=== PATIENT | female | born 1950 | race Caucasian/White ===

== ENCOUNTER 2020-07-18 08:27 | Outpatient (CLI) | payer MEDICARE, OTHER, SELFPAY ==
--- NOTE | 2020-07-18 08:37 | MM_ITS ---
WS: [id number] BILATERAL SCREENING DIGITAL MAMMOGRAM WITH CAD HISTORY: SCREENING COMPARISON: 06/11/2019, 01/30/2018 and 12/06/2016 Bilateral CC and MLO views submitted. Computer aided detection analyzed. Breast composition: There are scattered areas of fibroglandular density. No suspicious masses, microc alcifications or architectural distortion. Stable fibroglandular asymmetries bilaterally and calcific ations. MM/[place] [id number] IMPRESSION: BI-RADS: 2-Benign FOLLOW UP: 1 Year Follow-up
== END 2020-07-18 08:28 | disposition home or self-care (01) ==
LOC: RADSHAW 08:32
PROVIDERS: PCP Nurse Practitioner Family; Visit Provider Obstetrics & Gynecology
DX: Z12.31 Encounter for screening mammogram for malignant neoplasm of breast (principal)
CPT/HCPCS: 77067

== ENCOUNTER 2021-08-05 10:49 | Outpatient (CLI) | payer MEDICARE, OTHER, SELFPAY ==
--- NOTE | 2021-08-05 10:57 | MM_ITS ---
WS: [email or web address] BILATERAL SCREENING DIGITAL MAMMOGRAM WITH CAD HISTORY: SCREENING COMPARISON: 07/18/2020, 01/30/2018 and 06/09/2019 Bilateral CC and MLO views submitted. Computer aided detection analyzed. Breast composition: The breasts are heterogeneously dense, which may obscure small masses. No suspici ous masses, microcalcifications or architectural distortion. Scattered asymmetries and nodules and ca lcifications are stable. MM/[place] [id number] IMPRESSION: BI-RADS: 2-Benign FOLLOW UP: 1 Year Follow-up
== END 2021-08-05 10:50 | disposition home or self-care (01) ==
LOC: RADSHAW 10:55
PROVIDERS: PCP Nurse Practitioner Family; Visit Provider Obstetrics & Gynecology
DX: Z12.31 Encounter for screening mammogram for malignant neoplasm of breast (principal)
CPT/HCPCS: 77067

== ENCOUNTER 2022-08-18 10:02 | Outpatient (CLI) | payer MEDICARE, OTHER, SELFPAY ==
--- NOTE | 2022-08-18 10:09 | MM_ITS ---
WS: [email or web address] BILATERAL SCREENING DIGITAL TOMOSYNTHESIS MAMMOGRAM WITH CAD HISTORY: SCREENING COMPARISON: 12/02/2011, 01/30/2018, 08/05/2021 Bilateral CC and MLO views with tomosynthesis and synthetic mammography submitted. Computer aided det ection analyzed. Breast composition: The breasts are heterogeneously dense, which may obscure small masses. No suspici ous masses, microcalcifications or architectural distortion. Well-circumscribed 7.5 mm mass posterior to the LEFT nipple similar in size to 2012 examination. There are additional scattered calcification s. No focal clusters of calcifications which are new. MM/[place] [id number] IMPRESSION: BI-RADS: 2-Benign FOLLOW UP: 1 Year Follow-up
== END 2022-08-18 10:03 | disposition home or self-care (01) ==
PROVIDERS: PCP Nurse Practitioner Family; Visit Provider Nurse Practitioner Family
DX: Z12.31 Encounter for screening mammogram for malignant neoplasm of breast (principal)
CPT/HCPCS: 77063; 77067

== ENCOUNTER → 2023-08-24 09:13 | Outpatient (BNVA) | payer MEDICARE, OTHER, SELFPAY | PROVIDERS: PCP Nurse Practitioner Family; Visit Provider Nurse Practitioner Family | DX: L57.0 Actinic keratosis (principal); L82.0 Inflamed seborrheic keratosis; L82.1 Other seborrheic keratosis; L57.8 Other skin changes due to chronic exposure to nonionizing radiation | CPT/HCPCS: 17000; 17110; 99213 ==

== ENCOUNTER 2023-10-06 09:18 | Outpatient (CLI) | payer MEDICARE, OTHER, SELFPAY ==
--- NOTE | 2023-10-06 09:21 | MM_ITS ---
WS: [email or web address] SCREENING DIGITAL BREAST TOMOSYNTHESIS MAMMOGRAM WITH CAD HISTORY: SCREENING COMPARISON: 08/18/2022, 08/05/2021 and 01/30/2018 Bilateral CC and MLO with tomosynthesis and synthetic mammography submitted. Computer aided detection analyzed. Breast composition: There are scattered areas of fibroglandular density. Focal area of architectural distortion seen on the LEFT MLO projection only. Distortion is in the posterior lateral breast. No co rresponding finding on the CC projection. Benign calcifications RIGHT breast. IMPRESSION: MM/[place] [id number] BI-RADS: 0-Incomplete: Need additional imaging evaluation FOLLOW UP: Need Additional Imaging LEFT breast: Spot compression views (MLO). True ML. Ultrasound to follow if abn ormality persists.
== END 2023-10-06 09:19 | disposition home or self-care (01) ==
LOC: RAD 09:18
PROVIDERS: PCP Nurse Practitioner Family; Visit Provider Nurse Practitioner Family
DX: Z12.31 Encounter for screening mammogram for malignant neoplasm of breast (principal)
CPT/HCPCS: 77063; 77067

== ENCOUNTER 2023-11-07 10:15 | Outpatient (CLI) | payer MEDICARE, OTHER, SELFPAY ==
--- NOTE | 2023-11-07 10:18 | MM_ITS ---
WS: [email or web address] ADDITIONAL VIEWS LEFT MAMMOGRAM with tomosynthesis. LEFT BREAST ULTRASOUND HISTORY: ABNORMAL MAMMO COMPARISON: 10/06/2023, 08/18/2022, 08/05/2021 LEFT MAMMOGRAM: Spot compression views and true ML with tomosynthesis and sympathetic mammography. Focal asymmetry persists in the lateral LEFT breast near the 3:00 axis. Asymmetry measures 7 mm. This is a very poorly visualized asymmetry and seen only on the MLO projection. BREAST ULTRASOUND 2-D and color Doppler imaging submitted. Small lymph node in the LEFT breast at 2:00. There is additional asymmetry measuring 4 x 4 x 6 mm at 2:00, 4 cm from the nipple. The shape is similar to the finding on the mammogram. This may be a small cluster of cysts. IMPRESSION: MM/[place] [id number] BI-RADS: 3-Probably Benign FOLLOW UP: 6 Month Follow-up Recommend diagnostic LEFT breast mammogram follow-up and ultrasound in 6 months .
== END 2023-11-07 10:16 | disposition home or self-care (01) ==
LOC: RAD 10:15
PROVIDERS: PCP Nurse Practitioner Family; Visit Provider Nurse Practitioner Family
DX: R92.8 Other abnormal and inconclusive findings on diagnostic imaging of breast (principal)
CPT/HCPCS: 76642; 77061; G0279

== ENCOUNTER → 2024-02-15 09:37 | Outpatient (BNVA) | payer MEDICARE, OTHER, SELFPAY | PROVIDERS: PCP Nurse Practitioner Family; Visit Provider Nurse Practitioner Family | DX: E66.9 Obesity, unspecified (principal) | CPT/HCPCS: 80053; 85025 ==

== ENCOUNTER → 2024-03-14 09:02 | Outpatient (BNVA) | payer MEDICARE, OTHER, SELFPAY | PROVIDERS: PCP Nurse Practitioner Family; Visit Provider Nurse Practitioner Family | DX: L82.1 Other seborrheic keratosis (principal); L57.8 Other skin changes due to chronic exposure to nonionizing radiation; L81.4 Other melanin hyperpigmentation; D48.5 Neoplasm of uncertain behavior of skin | CPT/HCPCS: 11102; 99213 ==

== ENCOUNTER → 2024-04-10 09:55 | Outpatient (BNVA) | payer MEDICARE, OTHER, SELFPAY | PROVIDERS: PCP Nurse Practitioner Family; Visit Provider Dermatology | DX: C44.41 Basal cell carcinoma of skin of scalp and neck (principal) | CPT/HCPCS: 13132; 17311 ==

== ENCOUNTER 2024-05-08 09:47 | Outpatient (CLI) | payer MEDICARE, OTHER, SELFPAY ==
--- NOTE | 2024-05-08 10:04 | MM_ITS ---
WS: [email or web address] ADDITIONAL VIEWS LEFT MAMMOGRAM with tomosynthesis. LEFT BREAST ULTRASOUND HISTORY: R92.8 - Other abnormal and inconclusive findings on diagn... COMPARISON: 11/07/2023, 10/06/2023, 08/05/2021 LEFT MAMMOGRAM: Spot compression views and true ML with tomosynthesis and sympathetic mammography. Asymmetry appears much improved in the upper outer quadrant of the LEFT breast since prior study. The re is just very minimal distortion and asymmetry. Benign calcifications. LEFT BREAST ULTRASOUND 2-D and color Doppler imaging submitted. There is several small cystic and complex cystic structures in the upper outer quadrant of the LEFT b reast which are similar to the prior study. Some of these lymph nodes and some are complex cyst. At 2 :00, 2 cm from the nipple is a hypoechoic area measuring 1.3 x 1.6 x 0.3 which is probably a small ly mph node. There is a complex cyst at 4:00, 2 cm from the nipple measuring 0.6 x 0.5 x 0.4 cm. MM/[place] [id number] IMPRESSION: BI-RADS: 3-Probably Benign FOLLOW UP: 6 Month Follow-up 1. Overall the asymmetry noted by mammography in the LEFT breast is improving. 2. There are multiple small cysts and complex cystic structures in the upper o uter quadrant of the LEFT breast seen by ultrasound. Favor these are probably a ll benign. Recommend 6-month LEFT breast ultrasound follow-up only to the upper outer quadrant. Continue to document long-term stability recommended.
--- NOTE | 2024-05-08 10:30 | US_ITS ---
WS: [email or web address] ADDITIONAL VIEWS LEFT MAMMOGRAM with tomosynthesis. LEFT BREAST ULTRASOUND HISTORY: R92.8 - Other abnormal and inconclusive findings on diagn... COMPARISON: 11/07/2023, 10/06/2023, 08/05/2021 LEFT MAMMOGRAM: Spot compression views and true ML with tomosynthesis and sympathetic mammography. Asymmetry appears much improved in the upper outer quadrant of the LEFT breast since prior study. The re is just very minimal distortion and asymmetry. Benign calcifications. LEFT BREAST ULTRASOUND 2-D and color Doppler imaging submitted. There is several small cystic and complex cystic structures in the upper outer quadrant of the LEFT b reast which are similar to the prior study. Some of these lymph nodes and some are complex cyst. At 2 :00, 2 cm from the nipple is a hypoechoic area measuring 1.3 x 1.6 x 0.3 which is probably a small ly mph node. There is a complex cyst at 4:00, 2 cm from the nipple measuring 0.6 x 0.5 x 0.4 cm. US/US breast LT limited* [id number] IMPRESSION: BI-RADS: 3-Probably Benign FOLLOW UP: 6 Month Follow-up 1. Overall the asymmetry noted by mammography in the LEFT breast is improving. 2. There are multiple small cysts and complex cystic structures in the upper o uter quadrant of the LEFT breast seen by ultrasound. Favor these are probably a ll benign. Recommend 6-month LEFT breast ultrasound follow-up only to the upper outer quadrant. Continue to document long-term stability recommended.
== END 2024-05-08 09:48 | disposition home or self-care (01) ==
LOC: RAD 09:47
PROVIDERS: PCP Nurse Practitioner Family; Visit Provider Nurse Practitioner Women's Health
DX: R92.8 Other abnormal and inconclusive findings on diagnostic imaging of breast (principal); R92.1 Mammographic calcification found on diagnostic imaging of breast; N64.89 Other specified disorders of breast; N60.19 Diffuse cystic mastopathy of unspecified breast
CPT/HCPCS: 76642; 77061; G0279

== ENCOUNTER 2024-07-19 14:00 | Outpatient (CLI) | payer MEDICARE, OTHER, SELFPAY ==
--- NOTE | 2024-07-19 14:07 | XR_ITS ---
WS: [email or web address] SCREENING DEXA SCAN Aidin CLINICAL INFORMATION: MENOPAUSE COMPARISON: None. FINDINGS: The L1-L4 bone mineral density measures 1.829 g/cm2. This corresponds to a T score score of 5.4 and Z score of 6.7. Left femoral neck bone mineral density measures 1.236 g/cm2. This corresponds to a T score of 1.8 and Z score of 3.2. Right femoral neck bone mineral density measures 1.268 g/cm2. This corresponds to a T score 2.1of and Z score of 3.4. Mean femoral neck bone mineral density measures 1.252 g/cm2. This corresponds to a T score of 1.9 and Z score of 3.3. XR/XR DEXA axial skeleton* [id number] IMPRESSION: Normal bone mineralization. Patient's FRAX calculated 10 year probability for major osteoporotic fracture i s 9.8% and osteoporotic hip fracture is 1.7%.
--- NOTE | 2024-07-19 14:07 | XR_ITS ---
WS: [email or web address] Exam: XR knee RT 1-2V [id number] Date/Time of Exam: 07/19/2024 2:25 PM Reason For Exam: ANSERINE BURSITIS No fracture. 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 Spurring of the posterior patella. Minimal effusion in the suprapatellar bursa. Unremarkable soft tissues. XR/XR knee RT 1-2V [id number] IMPRESSION: 1. 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 Kellgren-Obed grade 3.
--- NOTE | 2024-07-19 14:07 | XR_ITS ---
WS: [email or web address] Exam: XR knee LT 1-2V [id number] Date/Time of Exam: 07/19/2024 2:25 PM Reason For Exam: ANSERINE BURSITIS No acute fracture noted. Severe narrowing of the medial joint compartment. Small effusion in the supr apatellar bursa. Normal soft tissues. XR/XR knee LT 1-2V [id number] IMPRESSION: 1. Advanced narrowing of the medial joint compartment. No fracture. Kellgren-La wrence grade 2
== END 2024-07-19 14:01 | disposition home or self-care (01) ==
PROVIDERS: PCP Nurse Practitioner Family; Visit Provider Internal Medicine
DX: Z13.820 Encounter for screening for osteoporosis (principal); Z78.0 Asymptomatic menopausal state; M70.50 Other bursitis of knee, unspecified knee; M25.861 Other specified joint disorders, right knee; M17.11 Unilateral primary osteoarthritis, right knee; M25.761 Osteophyte, right knee
CPT/HCPCS: 73560; 77080

== ENCOUNTER 2024-10-29 11:20 | Outpatient (CLI) | payer MEDICARE, OTHER, SELFPAY ==
--- NOTE | 2024-10-29 11:30 | US_ITS ---
WS: [email or web address] ULTRASOUND LEFT BREAST HISTORY: 6-month follow-up indeterminate LEFT breast cyst. COMPARISON: 11/07/2023, 05/08/2024 TECHNIQUE: 2-D and Doppler. Cyst in the LEFT breast at 2:00, 2 cm from nipple measures 1.2 x 0.8 x 0.4 cm. This is elongated and probably representing a duct. There are a few additional scattered cysts in the upper outer quadrant. No suspicious mass. No increase in size of any cyst. US/US breast LT limited* [id number] IMPRESSION: BI-RADS: 2- Benign FOLLOW-UP: 1 Year Follow-up Recommend return to annual screening mammography.
== END 2024-10-29 11:21 | disposition home or self-care (01) ==
LOC: RAD 11:22
PROVIDERS: PCP Internal Medicine; Visit Provider Nurse Practitioner Women's Health
DX: N60.12 Diffuse cystic mastopathy of left breast (principal)
CPT/HCPCS: 76642; 99213

== ENCOUNTER 2025-05-13 09:49 | Outpatient (CLI) | payer MEDICARE, OTHER, SELFPAY ==
--- NOTE | 2025-05-13 10:00 | MM_ITS ---
WS: [email or web address] BILATERAL SCREENING DIGITAL TOMOSYNTHESIS MAMMOGRAM WITH CAD HISTORY: Z12.31 - Encounter for screening mammogram for malignant ... COMPARISON: 05/08/2024 and 11/07/2023, 08/05/2021 Bilateral CC and MLO views with tomosynthesis and synthetic mammography submitted. Computer aided detection analyzed. Breast composition: There are scattered areas of fibroglandular density. No suspicious masses, microcalcifications or architectural distortion. Scattered asymmetries and calcifications within each breast are stable. MM/MM scr tomosynthesis [id number] IMPRESSION: BI-RADS: 2 - Benign. FOLLOW UP: 1 Year Follow-up
== END 2025-05-13 09:50 | disposition home or self-care (01) ==
LOC: RAD 09:50
PROVIDERS: Family Provider Nurse Practitioner Family; PCP Nurse Practitioner Family; Visit Provider Nurse Practitioner Women's Health
DX: Z12.31 Encounter for screening mammogram for malignant neoplasm of breast (principal); R92.323 Mammographic fibroglandular density, bilateral breasts; R92.1 Mammographic calcification found on diagnostic imaging of breast
CPT/HCPCS: 77063; 77067

== ENCOUNTER → 2025-10-29 10:54 | Outpatient (BNVA) | payer MEDICARE, OTHER, SELFPAY | PROVIDERS: Family Provider Nurse Practitioner Family; PCP Nurse Practitioner Family; Visit Provider Nurse Practitioner Family | DX: L57.8 Other skin changes due to chronic exposure to nonionizing radiation (principal); L81.4 Other melanin hyperpigmentation; L82.1 Other seborrheic keratosis; D18.01 Hemangioma of skin and subcutaneous tissue; Z08 Encounter for follow-up examination after completed treatment for malignant neoplasm | CPT/HCPCS: 11102; 17110; 99213 ==